=== PATIENT | female | born 1990 | race Asian ===

== ENCOUNTER 2020-01-22 02:31 | Emergency (ER) | payer MEDICARE, MEDICAID ==
[~2020-01-22] VITALS: Ht 157.5 cm; Wt 68.0 kg
--- NOTE | 2020-01-22 02:34 | NUR ---
ED Nurse Note: Patient brought in by ambulance RA 68 with c/o asthma/SOB onset 30mins ago. Patient has mild wheezes and reported that she ran out of inhaler since last month. Patient denies CP/SOB/, fever and chills, N&V, cough. Patient is AAOx4 and ambulatory.
--- NOTE | 2020-01-22 02:37 | NUR ---
ED Nurse Note: ERMD at bedside
[2020-01-22 02:38] VITALS: BP 119/81
--- NOTE | 2020-01-22 02:42 | Emergency Room Report ---
History of Present Illness General Chief Complaint: Asthma Source: Patient Present Illness HPI This is a 30-year-old female with a history of asthma. She presents with complaint of asthma exacerbation. She woke up feeling short of breath and chest tightness. Has wheezing. She said it was due to the cold air. She lost her inhaler. No history of intubation. Unknown last steroid use. No fever chills sweats no nausea no vomiting. Allergies: Coded Allergies: No Known Allergies (Unverified , 01/22/20) COVID-19 Screening Contact w/high risk pt: No Experienced COVID-19 symptoms?: No COVID-19 Testing performed DENTAL APPLIANCE MECHANIC: No Patient History Past Medical History: see triage record, old chart reviewed, asthma Past Surgical History: none Pertinent Family History: none Social History: Reports: smoking Now: No Immunizations: other Reviewed Nursing Documentation: PMH: Agreed; PSxH: Agreed Nursing Documentation-PMH Hx Asthma: Yes Review of Systems Eye: Denies: eye pain, blurred vision ENT: Denies: ear pain, nose congestion, throat swelling Respiratory: Reports: cough, shortness of breath, wheezing Cardiovascular: Denies: chest pain, palpitations Gastrointestinal: Denies: abdominal pain, diarrhea, nausea, vomiting Musculoskeletal: Denies: back pain, joint pain Skin: Denies: rash Neurological: Denies: headache, numbness Endocrine: Denies: increased thirst, increased urine Hematologic/Lymphatic: Denies: easy bruising All Other Systems: negative except mentioned in HPI Physical Exam Vital Signs Date Time Temp Pulse Resp B/P (MAP) Pulse Ox O2 Delivery O2 Flow Rate FiO2 01/22/20 02:31 98.8 88 20 119/81 (94) 97 Room Air Vitals normal Sp02 EP Interpretation: reviewed, normal General Appearance: well appearing, no apparent distress, alert Head: normocephalic, atraumatic Eyes: bilateral eye PERRL, bilateral eye EOMI ENT: hearing grossly normal, normal pharynx Neck: full range of motion, supple, no meningismus Respiratory: chest non-tender, decreased breath sounds, accessory muscle use, wheezing Cardiovascular #1: regular rate, rhythm, no murmur Gastrointestinal: normal bowel sounds, non tender, no mass, no organomegaly, no bruit, non-distended Musculoskeletal: back normal, normal range of motion, gait/station normal Psychiatric: mood/affect normal Medical Decision Making Diagnostic Impression: Primary Impression: Asthma exacerbation Qualified Codes: J45.21 - Mild intermittent asthma with (acute) exacerbation ER Course Patient presents with asthma exacerbation. Wheezing cleared after breathing treatment. Steroid also started. No evidence of pneumonia, PE, ACS, dissection to name a few. Will discharge home. Last Vital Signs Date Time Temp Pulse Resp B/P (MAP) Pulse Ox O2 Delivery O2 Flow Rate FiO2 01/22/20 02:38 88 20 Room Air 01/22/20 02:38 98.8 119/81 98 Status: improved Disposition: HOME, SELF-CARE Condition: Improved Scripts Prednisone* (PREDNISONE*) 20 Mg Tablet 40 MG ORAL DAILY, #8 TAB Prov: Mayco Burris MD 01/22/20 Albuterol Sulfate* (Albuterol Sulfate Hfa*) 8.5 Gm Hfa.aer.ad 2 PUFF INH Q4H, #1 INH Prov: Mayco Burris MD 01/22/20 Patient Instructions: Asthma, Adult Additional Instructions: Stop smoking. Follow-up with your doctor in 7 days but return if worse. Mayco Burris MD Jan 22, 2020 02:42
[2020-01-22] MEDS ORDERED: Albuterol 90mcg Inhaler 8gm INH ONE (02:45)
--- NOTE | 2020-01-22 02:46 | NUR ---
ED Nurse Note: Breathing tx and oral meds given
[2020-01-22] MEDS ORDERED: PREDNISONE20 MG ORAL (03:11)
[2020-01-22] MEDS ORDERED: ALBUTEROL SULF8.5 G1 INH (03:11)
--- NOTE | 2020-01-22 03:17 | NUR ---
ER DISCHARGE NOTE: Patient is cleared to be discharged per ERMD, pt is aox4, on room air, with stable vital signs. pt was given dc and prescription instructions, pt was able to verbalize understanding, pt id band removed. pt is able to ambulate with steady gait. pt took all belongings.
[2020-01-22 03:18] VITALS: BP 119/81
== END 2020-01-22 03:18 | disposition home or self-care (01) ==
LOC: EDBD 02:31 → EMR 02:52
DX: J45.21 Mild intermittent asthma with (acute) exacerbation (principal); F17.200 Nicotine dependence, unspecified, uncomplicated
CPT/HCPCS: 99283; J7512

== ENCOUNTER 2020-02-05 10:41 | Emergency (ER) | payer MEDICARE, MEDICAID ==
[~2020-02-05] VITALS: Ht 157.5 cm; Wt 75.3 kg
[~2020-02-05 10:41] MED LIST: ALBUTEROL SULF8.5 G1 INH; PREDNISONE20 MG ORAL
[2020-02-05 10:53] VITALS: BP 119/76
--- NOTE | 2020-02-05 12:22 | Emergency Room Report ---
History of Present Illness General Chief Complaint: Skin Rash/Abscess Source: Patient Present Illness HPI This patient states that she has had a rash on her lower back, buttocks and upper thighs. She states this has been going on for couple weeks. She states that it does itch. She has no other complaints. She denies recent illness. She denies cough or congestion. She has no other complaints. Allergies: Coded Allergies: No Known Allergies (Unverified , 01/22/20) COVID-19 Screening Contact w/high risk pt: No Experienced COVID-19 symptoms?: No COVID-19 Testing performed INSURANCE FOLLOW UP REP: No Patient History Past Medical History: see triage record, asthma Social History: Denies: smoking, alcohol use, drug use Last Menstrual Period: unk Reviewed Nursing Documentation: PMH: Agreed; PSxH: Agreed Nursing Documentation-PMH Past Medical History: No History, Except For Hx Asthma: Yes History Of Psychiatric Problem: Yes Review of Systems All Other Systems: negative except mentioned in HPI Physical Exam Vital Signs Date Time Temp Pulse Resp B/P (MAP) Pulse Ox O2 Delivery O2 Flow Rate FiO2 02/05/20 10:46 98.1 100 17 119/76 (90) 98 Room Air Sp02 EP Interpretation: reviewed, normal General Appearance: no apparent distress, alert, GCS 15, non-toxic Head: normocephalic Eyes: bilateral eye normal inspection ENT: hearing grossly normal, no angioedema, normal voice Neck: normal inspection Respiratory: no respiratory distress, no retraction, no accessory muscle use, speaking full sentences Rectal: deferred Musculoskeletal: normal inspection, normal range of motion, gait/station normal, non-tender Neurologic: alert, motor strength/tone normal, oriented x3, sensory intact, responsive, speech normal Psychiatric: judgement/insight normal, memory normal, mood/affect normal, no suicidal/homicidal ideation Skin: other - Maculopapular rash over lower back, buttocks, and posterior upper thighs in a follicular pattern. Medical Decision Making Diagnostic Impression: Primary Impression: Folliculitis Additional Impression: Rash ER Course This patient has findings on exam consistent with folliculitis. The pattern is in the distribution of where the skin would be up against a chair. She does report neuritis associated with the rash. As a precaution, I will go ahead and give the patient permethrin cream and also treat for folliculitis with oral antibiotics. Overall, the patient's evaluation is benign. There is no evidence of cellulitis or serious bacterial infection. Patient was instructed to follow- up as an outpatient with her primary care provider. Patient is given close return precautions and follow-up instructions. Last Vital Signs Date Time Temp Pulse Resp B/P (MAP) Pulse Ox O2 Delivery O2 Flow Rate FiO2 02/05/20 10:53 98.1 100 17 119/76 98 Room Air Disposition: HOME, SELF-CARE Condition: Improved Oumou Merino DO Feb 05, 2020 12:22
[2020-02-05] MEDS ORDERED: PERMETHRIN60 GM TOPIC (12:42)
[2020-02-05] MEDS ORDERED: DOXYCYCLINE MO100 MG ORAL (12:42)
[2020-02-05 12:51] VITALS: BP 120/78
== END 2020-02-05 12:51 | disposition home or self-care (01) ==
LOC: EMR 11:00
DX: L73.9 Follicular disorder, unspecified (principal); R21 Rash and other nonspecific skin eruption; J45.909 Unspecified asthma, uncomplicated; Z79.899 Other long term (current) drug therapy
CPT/HCPCS: 99281